=== PATIENT | female | born 1945 | race Caucasian/White ===

== ENCOUNTER 2016-04-11 06:41 | Emergency (ER) | payer MEDICARE ==
[2016-04-11] MEDS ORDERED: ASPIRIN 81 MG TABLET, CHEWABLE PO ONE (07:01)
[2016-04-11] MEDS ORDERED: ONDANSETRON HCL INJ/PF 4 MG/2 ML SDV IV ONE (07:23)
[2016-04-11] MEDS ORDERED: MORPHINE SULFATE 10 MG/ML INJ IV ONE (07:23)
--- NOTE | 2016-04-11 07:26 | ER Document Report ---
ED General - General Time seen by provider: 07:20 Mode of Arrival: Medic Information source: Patient, Emergency Med Personnel TRAVEL OUTSIDE OF THE U.S. IN LAST 30 DAYS: No - HPI Onset: Other - see HPI Quality of pain: Achy, Sharp Associated symptoms: Chest pain Exacerbated by: Movement, Coughing, Deep breathing <STEPHANI ROBLES - Last Filed: 04/11/16 08:28> <MOIRA BARCENAS - Last Filed: 04/11/16 08:43> - General Chief Complaint: Chest Wall Pain Stated Complaint: CHEST PAIN Notes: Patient is a 70-year-old female presenting to the emergency department with complaints of left-sided chest pain. Patient's chest pain was onset about one week ago and is getting worse. 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 Patient's pain is exacerbated and reproduced with movement, cough, and deep breathing. Patient's pain radiates down her arm and into her trapezius muscles. Patient also has an extensive cardiac history. Patient has CAD, heart attacks 2, COPD, and stents 4. Patient had her first stent placed in 2006 in [place]. In July of 2013, patient had an inferior wall stemi and was transferred from [facility] to [place] where she had 3 stents placed. Patient states that at her check up appointment , her collection development librarian said that her first stent may need to be repaired or replaced soon. Patient's PCP is Dr. Loza and her collection development librarian is Dr. Tripathi at Dr. Cedeno's office. Patient is allergic to penicillin. (STEPHANI ROBLES) - Related Data Allergies/Adverse Reactions: Penicillins Allergy (Verified 04/11/16 06:57) Hives Home Medications: Current Home Medications Clopidogrel Bisulfate [Clopidogrel] 75 mg PO DAILY 04/11/16 [History] Gabapentin [Gabapentin] 300 mg PO BID 04/11/16 [History] Levocetirizine Dihydrochloride [Xyzal 5 mg Tablet] 5 mg PO QPM 04/11/16 [History ] Metoprolol Tartrate 50 mg PO BID 04/11/16 [History] Montelukast Sodium 10 mg PO QPM 04/11/16 [History] Ranitidine HCl 150 mg PO BID 04/11/16 [History] Simvastatin [Simvastatin] 40 mg PO QPM 04/11/16 [History] Valsartan [Valsartan] 160 mg PO DAILY 04/11/16 [History] Past Medical History - General Information source: Patient, Emergency Med Personnel - Social History Smoking Status: Current Every Day Smoker Cigarette use (# per day): Yes - 1.5 ppd Chew tobacco use (# tins/day): No Frequency of alcohol use: None Drug Abuse: None Family History: CAD - Past Medical History Cardiac Medical History: Reports: Hx Coronary Artery Disease, Hx Heart Attack - x2, Hx Hypercholesterolemia, Hx Hypertension Pulmonary Medical History: Reports: Hx Asthma, Hx COPD Neurological Medical History: Reports: 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 GI Medical History: Reports: Hx Gastroesophageal Reflux Disease Psychiatric Medical History: Reports: Hx Depression Past Surgical History: Reports: Hx Appendectomy, Hx Cardiac Catheterization, Hx Cardiac Surgery - stents x4: 1 in 2006, 3 in July 2013 after inferior wall stemi , Hx Cholecystectomy, Hx Orthopedic Surgery, Hx Tubal Ligation, Other - vocal cord polyp removal - Immunizations Hx Diphtheria, Pertussis, Tetanus Vaccination: Yes <STEPHANI ROBLES - Last Filed: 04/11/16 08:28> Review of Systems - Review of Systems Constitutional: No symptoms reported EENT: No symptoms reported Cardiovascular: See HPI, Chest pain Respiratory: No symptoms reported Gastrointestinal: No symptoms reported Genitourinary: No symptoms reported Female Genitourinary: No symptoms reported Musculoskeletal: No symptoms reported Skin: No symptoms reported Hematologic/Lymphatic: No symptoms reported Neurological/Psychological: No symptoms reported -: Yes All other systems reviewed and negative <STEPHANI ROBLES - Last Filed: 04/11/16 08:28> Physical Exam - Vital signs Interpretation: Normal - General General appearance: Alert, Other - appears uncomfortable In distress: Mild - HEENT Head: Normocephalic, Atraumatic Eyes: Normal Pupils: PERRL Mucous membranes: Normal - Respiratory Respiratory status: No respiratory distress Chest status: Tender - upper left anterior chest wall tenderness Breath sounds: Normal Chest palpation: Normal - Cardiovascular Rhythm: Regular Heart sounds: Normal auscultation Murmur: No - Abdominal Inspection: Normal Distension: No distension Bowel sounds: Normal Tenderness: Nontender Organomegaly: No organomegaly - Back Back: Normal, Tender - left trapezius muscles exquisitely tender - Extremities General upper extremity: Normal inspection, Tender - tenderness to the left arm , radiating from the anterior chest, Normal ROM General lower extremity: Normal inspection, Normal ROM, Normal strength. No: Edema - Neurological Neuro grossly intact: Yes Cognition: Normal Orientation: AAOx4 [place] Coma Scale Eye Opening: Spontaneous [place] Coma Scale Verbal: Oriented [place] Coma Scale Motor: Obeys Commands Deanna Coma Scale Total: 15 Speech: Normal Sensory: Normal - Psychological Associated symptoms: Normal affect, Normal mood - Skin Skin Temperature: Warm Skin Moisture: Dry <STEPHANI ROBLES - Last Filed: 04/11/16 08:28> Course - Laboratory Result Diagrams: 04/11/16 06:50 04/11/16 06:50 <STEPHANI ROBLES - Last Filed: 04/11/16 08:28> - Laboratory Result Diagrams: 04/11/16 06:50 04/11/16 06:50 - Diagnostic Test Radiology reviewed: Image reviewed, Reports reviewed - Chest x-ray does not show any acute process. - EKG Interpretation by Ne EKG shows normal: Sinus rhythm, [place], Intervals, ST-T Waves. abnormal: QRS Complexes - Inferior Q's from old [place] Rate: Normal - 93 Rhythm: NSR <MOIRA BARCENAS - Last Filed: 04/11/16 08:43> - Vital Signs Vital signs: Temp Pulse Resp BP Pulse Ox 98.2 F 95 18 169/124 H 98 04/11/16 07:00 04/11/16 06:53 04/11/16 06:58 04/11/16 06:53 04/11/16 07:02 (STEPHANI ROBLES) (MOIRA BARCENAS) - Laboratory Laboratory results interpreted by me: 04/11/16 06:50 Est GFR (Non-Af Amer) 58 L (MOIRA BARCENAS) Discharge <STEPHANI ROBLES - Last Filed: 04/11/16 08:28> <MOIRA BARCENAS - Last Filed: 04/11/16 08:43> - Discharge Clinical Impression: Left-sided chest wall pain Trapezius muscle strain Qualifiers: Encounter type: initial encounter Laterality: left Qualified Code(s): S46.812A - Strain of other muscles, fascia and tendons at shoulder and upper arm level, left arm, initial encounter Strain of left pectoralis muscle Qualifiers: Encounter type: initial encounter Qualified Code(s): S29.011A - Strain of muscle and tendon of front wall of thorax, initial encounter Condition: Stable Disposition: HOME, SELF-CARE Additional Instructions: Chest Wall Pain: Your chest pain has been diagnosed as coming from the chest wall. This is often caused by straining the muscles or joints in the chest during physical activity, direct trauma, coughing, or vigorous vomiting. Persons with arthritis are especially prone to this type of pain, due to inflammation of the cartilage joints near the breast bone. Occasionally, no cause can be found. Rest from strenuous physical activity. This kind of chest pain is usually made worse by movement of the chest. Depending on the symptoms, we may prescribe medicine for pain, muscle relaxation, and antiinflammatory effects. If the pain is new, and seems to be due to muscle strain, cold packs can help. Otherwise, apply gentle warmth to the painful area for 15 minutes every hour or two. You should contact the doctor immediately if things change. Further evaluation is needed if you develop a fever or cough, if the nature of the pain changes, or if you become short of breath. Muscle Strain: You have strained a muscle -- torn the fibers within the muscle. This often occurs with strenuous exertion, or during an injury that suddenly stretches the muscle. The seriousness of a strain varies. Some strains heal within days, others cause problems for months. X-rays cannot show a muscle strain. X-rays are taken only if symptoms suggest that a fracture could be present. The usual treatment of a muscle strain is rest and ice packs. Sometimes, a sling, splint, or crutches may be necessary to rest the muscle. The muscle can be used again once pain subsides. Severe strains require a special exercise and stretching program to prevent permanent stiffness and disability. Your doctor will advise you if this will be necessary. Call the doctor immediately if pain or swelling becomes severe, or if numbness or discoloration develop. REST THE LEFT UPPER EXTREMITY. USE MOIST HEAT TO THE PAINFUL MUSCLES. TAKE THE PAIN MEDICATION AND MUSCLE RELAXERS NEEDED. FOLLOW UP WITH YOUR DOCTOR THIS WEEK FOR RECHECK. RETURN TO THE EMERGENCY ROOM IF ANY NEW OR WORSENING SYMPTOMS. Prescriptions: Cyclobenzaprine HCl [Flexeril 5 mg Tablet] 5 mg PO TID PRN #15 tablet PRN Reason: Oxycodone HCl/Acetaminophen [Percocet 5-325 mg Tablet] 1 - 2 tab PO ASDIR PRN # 15 tablet PRN Reason: Referrals: KAREN LOZA MD [Primary Care Provider] - Follow up in 3-5 days Scribe Attestation: 04/11/16 08:43 I personally performed the services described in the documentation, reviewed and edited the documentation which was dictated to the scribe in my presence, and it accurately records my words and actions. (MOIRA BARCENAS) Scribe Documentation <STEPHANI ROBLES - Last Filed: 04/11/16 08:28> <MOIRA BARCENAS - Last Filed: 04/11/16 08:43> - Scribe Written by Scribe:: MOIRA BARCENAS MD, SCRIBE 04/11/16830 Acting as scribe for: Dr. Barcenas (STEPHANI ROBLES) (MOIRA BARCENAS)
[2016-04-11 07:38] LABS: PROTHROMBIN TIME 12.1 SEC (11.4-15.4)
[2016-04-11 07:45] LABS: ABSOLUTE EOSINOPHILS # (AUTO) 0.3 10^3/uL (0.0-0.6); ABSOLUTE LYMPHOCYTES (AUTO) 1.3 10^3/uL (0.5-4.7); ABSOLUTE MONOCYTES (AUTO) 0.5 10^3/uL (0.1-1.4); ABSOLUTE NEUT (AUTO) 3.3 10^3/uL (1.7-8.2); ALANINE AMINOTRANSFERASE 21 U/L (9-52); ALBUMIN 3.7 g/dL (3.5-5.0); ALKALINE PHOSPHATASE 83 U/L (38-126); ANION GAP 13 (5-19); ASPARTATE AMINO TRANSFERASE 20 U/L (14-36); BASOPHILS % (AUTO) 0.6 % (0-2); BILIRUBIN,TOTAL 0.6 mg/dL (0.2-1.3); BLOOD UREA NITROGEN 14 mg/dL (7-20); CALCIUM 9.7 mg/dL (8.4-10.2); CARBON DIOXIDE 24 mmol/L (22-30); CHLORIDE 107 mmol/L (98-107); CREATINE KINASE 85 U/L (30-135); CREATININE RESULT 0.96 mg/dL (0.52-1.25); EOSINOPHILS % (AUTO) 4.8 % (0-6); GLUCOSE 101 mg/dL (75-110); HEMATOCRIT 41.9 % (36.0-47.0); HEMOGLOBIN 13.5 g/dL (12.0-15.5); HGB HCT DIFFERENCE -1.4; MEAN CORPUSCULAR HEMOGLOBIN 30.4 pg (27.0-33.4); MEAN CORPUSCULAR HGB CONC 32.3 g/dL (32.0-36.0); MEAN CORPUSCULAR VOLUME 94 fl (80-97); MONOCYTES % (AUTO) 8.8 % (3-13); POTASSIUM 4.7 mmol/L (3.6-5.0); RED BLOOD COUNT 4.45 10^6/uL (3.72-5.28); SEGMENTED NEUTROPHILS % (AUTO) 61.8 % (42-78); SODIUM 143.7 mmol/L (137-145); TOTAL PROTEIN 6.9 g/dL (6.3-8.2); WHITE BLOOD COUNT 5.3 10^3/uL (4.0-10.5)
[2016-04-11 07:57] LABS: CREATINE KINASE MB 1.25 ng/mL (<4.55)
[2016-04-11 07:58] LABS: TROPONIN I < 0.012 ng/mL
[2016-04-11 08:50] VITALS: BP 141/60
--- NOTE | 2016-04-11 10:17 | EKG REPORT ---
SEVERITY:- NORMAL ECG - SINUS RHYTHM : Confirmed by: Shea Wheeler MD 11-Apr-2016 10:16:14
== END 2016-04-11 08:50 | disposition home or self-care (01) ==
LOC: ER 06:41
DX: S29.012A Strain of muscle and tendon of back wall of thorax, initial encounter (principal); S29.011A Strain of muscle and tendon of front wall of thorax, initial encounter; X58.XXXA Exposure to other specified factors, initial encounter; R07.89 Other chest pain; I25.10 Atherosclerotic heart disease of native coronary artery without angina pectoris; I25.2 Old myocardial infarction; I10 Essential (primary) hypertension; J44.9 Chronic obstructive pulmonary disease, unspecified; J45.909 Unspecified asthma, uncomplicated; F17.210 Nicotine dependence, cigarettes, uncomplicated; Z98.61 Coronary angioplasty status; Z88.0 Allergy status to penicillin
CPT/HCPCS: 93005; 99285; 96374; 96375; 36415; 82553; 82550; 85025; 85610; 80053; 84484; 71010; 93010; J2270; J2405

== ENCOUNTER → 2016-08-03 | Outpatient (CLI) | payer MEDICARE ==
[2016-08-03 13:05] LABS: ABSOLUTE EOSINOPHILS # (AUTO) 0.3 10^3/uL (0.0-0.6); ABSOLUTE LYMPHOCYTES (AUTO) 1.3 10^3/uL (0.5-4.7); ABSOLUTE MONOCYTES (AUTO) 0.3 10^3/uL (0.1-1.4); ABSOLUTE NEUT (AUTO) 2.6 10^3/uL (1.7-8.2); EOSINOPHILS % (AUTO) 5.7 % (0-6); HEMATOCRIT 40.7 % (36.0-47.0); HGB HCT DIFFERENCE 1.3; LYMPHOCYTES % (AUTO) 28.2 % (13-45); MEAN CORPUSCULAR HEMOGLOBIN 32.2 pg (27.0-33.4); MEAN CORPUSCULAR HGB CONC 34.4 g/dL (32.0-36.0); MEAN CORPUSCULAR VOLUME 94 fl (80-97); MONOCYTES % (AUTO) 7.3 % (3-13); RED BLOOD COUNT 4.35 10^6/uL (3.72-5.28); RED CELL DISTRIBUTION WIDTH 13.6 % (11.5-14.0); SEGMENTED NEUTROPHILS % (AUTO) 57.8 % (42-78); WHITE BLOOD COUNT 4.5 10^3/uL (4.0-10.5)
[2016-08-03 13:30] LABS: ALANINE AMINOTRANSFERASE 20 U/L (9-52); ALBUMIN 4.3 g/dL (3.5-5.0); ALKALINE PHOSPHATASE 89 U/L (38-126); ANION GAP 8 (5-19); ASPARTATE AMINO TRANSFERASE 22 U/L (14-36); BILIRUBIN,DIRECT 0.4 mg/dL (0.0-0.4); BILIRUBIN,TOTAL 0.7 mg/dL (0.2-1.3); BLOOD UREA NITROGEN 12 mg/dL (7-20); CARBON DIOXIDE 28 mmol/L (22-30); CHLORIDE 104 mmol/L (98-107); CREATINE KINASE 89 U/L (30-135); CREATININE RESULT 0.93 mg/dL (0.52-1.25); GLUCOSE 119 mg/dL (75-110); POTASSIUM 5.4 mmol/L (3.6-5.0); SODIUM 139.7 mmol/L (137-145); TOTAL PROTEIN 7.6 g/dL (6.3-8.2)
[2016-08-03 13:35] LABS: CREATINE KINASE MB 1.09 ng/mL (<4.55)
[2016-08-03 13:45] LABS: TROPONIN I < 0.012 ng/mL
== END ==
LOC: OD 12:16
PROVIDERS: ATTEND Physician Assistant
DX: R07.9 Chest pain, unspecified (principal)
CPT/HCPCS: 36415; 71020; 80053; 82550; 82553; 84484; 85025

== ENCOUNTER → 2016-08-06 | Outpatient (CLI) | payer MEDICARE | LOC: OD 09:56 | PROVIDERS: ATTEND Physician Assistant | DX: E87.5 Hyperkalemia (principal) | CPT/HCPCS: 36415; 84132 ==

== ENCOUNTER → 2016-10-05 | Outpatient (CLI) | payer MEDICARE ==
[2016-10-05 12:23] LABS: ABSOLUTE BASOPHILS # (AUTO) 0.1 10^3/uL (0.0-0.2); ABSOLUTE EOSINOPHILS # (AUTO) 0.3 10^3/uL (0.0-0.6); ABSOLUTE LYMPHOCYTES (AUTO) 1.3 10^3/uL (0.5-4.7); ABSOLUTE MONOCYTES (AUTO) 0.5 10^3/uL (0.1-1.4); ABSOLUTE NEUT (AUTO) 3.9 10^3/uL (1.7-8.2); BASOPHILS % (AUTO) 1.1 % (0-2); EOSINOPHILS % (AUTO) 5.2 % (0-6); HEMATOCRIT 44.1 % (36.0-47.0); HEMOGLOBIN 14.9 g/dL (12.0-15.5); HGB HCT DIFFERENCE 0.6; LYMPHOCYTES % (AUTO) 21.3 % (13-45); MEAN CORPUSCULAR HEMOGLOBIN 30.5 pg (27.0-33.4); MEAN CORPUSCULAR HGB CONC 33.7 g/dL (32.0-36.0); MEAN CORPUSCULAR VOLUME 90 fl (80-97); MONOCYTES % (AUTO) 8.6 % (3-13); RED BLOOD COUNT 4.88 10^6/uL (3.72-5.28); RED CELL DISTRIBUTION WIDTH 14.7 % (11.5-14.0); SEGMENTED NEUTROPHILS % (AUTO) 63.8 % (42-78); WHITE BLOOD COUNT 6.1 10^3/uL (4.0-10.5)
[2016-10-05 12:46] LABS: ALANINE AMINOTRANSFERASE 30 U/L (9-52); ALBUMIN 4.5 g/dL (3.5-5.0); ALKALINE PHOSPHATASE 80 U/L (38-126); ANION GAP 8 (5-19); ASPARTATE AMINO TRANSFERASE 22 U/L (14-36); BILIRUBIN,DIRECT 0.3 mg/dL (0.0-0.4); BILIRUBIN,TOTAL 0.5 mg/dL (0.2-1.3); BLOOD UREA NITROGEN 12 mg/dL (7-20); CALCIUM 10.1 mg/dL (8.4-10.2); CARBON DIOXIDE 28 mmol/L (22-30); CHLORIDE 104 mmol/L (98-107); CREATINE KINASE 84 U/L (30-135); CREATININE RESULT 1.03 mg/dL (0.52-1.25); GLUCOSE 92 mg/dL (75-110); POTASSIUM 5.9 mmol/L (3.6-5.0); SODIUM 140.2 mmol/L (137-145); TOTAL PROTEIN 7.8 g/dL (6.3-8.2)
[2016-10-05 12:56] LABS: CREATINE KINASE MB 1.19 ng/mL (<4.55)
[2016-10-05 12:59] LABS: TROPONIN I < 0.012 ng/mL
[2016-10-05 13:05] LABS: ERYTHROCYTE SEDIMENTATION RATE 10 mm/hr (0-30)
[2016-10-06 12:51] LABS: CREATINE KINASE MB 1.25 ng/mL (<4.55)
[2016-10-06 12:52] LABS: TROPONIN I < 0.012 ng/mL
[2016-10-06 12:57] LABS: ALANINE AMINOTRANSFERASE 22 U/L (9-52); ALKALINE PHOSPHATASE 77 U/L (38-126); ANION GAP 9 (5-19); ASPARTATE AMINO TRANSFERASE 21 U/L (14-36); BILIRUBIN,DIRECT 0.4 mg/dL (0.0-0.4); BILIRUBIN,TOTAL 0.6 mg/dL (0.2-1.3); BLOOD UREA NITROGEN 15 mg/dL (7-20); CALCIUM 9.7 mg/dL (8.4-10.2); CARBON DIOXIDE 27 mmol/L (22-30); CHLORIDE 102 mmol/L (98-107); CREATINE KINASE 97 U/L (30-135); CREATININE RESULT 1.04 mg/dL (0.52-1.25); GLUCOSE 99 mg/dL (75-110); POTASSIUM 5.4 mmol/L (3.6-5.0); SODIUM 138.4 mmol/L (137-145); TOTAL PROTEIN 7.1 g/dL (6.3-8.2)
== END ==
LOC: OD 11:29
PROVIDERS: ATTEND Physician Assistant
DX: R07.9 Chest pain, unspecified (principal)
CPT/HCPCS: 36415; 80053; 82550; 82553; 84484; 85025; 85652; 86038; 86430

== ENCOUNTER 2016-10-06 16:18 | Emergency (ER) | payer MEDICARE ==
--- NOTE | 2016-10-06 18:42 | ER Document Report ---
ED Medical Screen (RME) - General Chief Complaint: Chest Pain Stated Complaint: CHEST PAIN Time Seen by Provider: 10/06/16 18:19 Mode of Arrival: Ambulatory Information source: Patient, [facility] Records TRAVEL OUTSIDE OF THE [place]. IN LAST 30 DAYS: No - HPI Onset: Other - 1 month Quality of pain: Dull Associated Symptoms: None Exacerbated by: Denies Relieved by: Denies Notes: 10/06/16 18:40 Patient is a 70-year-old female with known history of cardiac disease. She has had previous MIs and stent placements. She has not seen a film cleaner in approximately 18 months. She presents for one-month history of chest pain. Patient also states that she was seen by her primary care doctor yesterday and was told her potassium was elevated. Patient is taking an unknown oral agent for hyperkalemia. Patient denies any shortness of breath, nausea or vomiting, sweats. Patient states she wants to be "checked out" but does not want to be admitted to the hospital. 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 Renal/ Medical History: Denies: Hx Peritoneal Dialysis GI Medical History: Reports: Hx Gastroesophageal Reflux Disease Psychiatric Medical History: Reports: Hx Depression Past Surgical History: Reports: Hx Appendectomy, Hx Cardiac Catheterization, Hx Cardiac Surgery - stents x4: 1 in 2006, 3 in July 2013 after inferior wall stemi , Hx Cholecystectomy, Hx Orthopedic Surgery, Hx Tubal Ligation, Other - vocal cord polyp removal - Immunizations Hx Diphtheria, Pertussis, Tetanus Vaccination: Yes Physical Exam - Vital signs Vitals: Temp Pulse Resp BP Pulse Ox 98.4 F 79 18 167/92 H 97 10/06/16 16:28 10/06/16 16:28 10/06/16 16:28 10/06/16 16:28 10/06/16 16:28 Course - Re-evaluation Re-evalutation: 10/06/16 18:44 I have reviewed the chemistries done yesterday and today. Potassium was 5.9 yesterday and is 5.4 today. Patient does have extensive cardiac history and although her chest pain has been present for 1 month, she should be admitted for chest pain rule out. Patient will likely will sign out AMA however will continue to do the appropriate chest pain workup. - Vital Signs Vital signs: Temp Pulse Resp BP Pulse Ox 98.4 F 79 18 167/92 H 97 10/06/16 16:28 10/06/16 16:28 10/06/16 16:28 10/06/16 16:28 10/06/16 16:28 - EKG Interpretation by Hi EKG shows normal: Sinus rhythm Rate: Normal [place]/QRS: No: Right axis deviation, Left axis deviation When compared to previous EKG there are: No significant change
[2016-10-06 19:08] LABS: ABSOLUTE BASOPHILS # (AUTO) 0.1 10^3/uL (0.0-0.2); ABSOLUTE EOSINOPHILS # (AUTO) 0.2 10^3/uL (0.0-0.6); ABSOLUTE LYMPHOCYTES (AUTO) 1.2 10^3/uL (0.5-4.7); ABSOLUTE MONOCYTES (AUTO) 0.4 10^3/uL (0.1-1.4); ABSOLUTE NEUT (AUTO) 5.1 10^3/uL (1.7-8.2); BASOPHILS % (AUTO) 0.8 % (0-2); EOSINOPHILS % (AUTO) 2.3 % (0-6); HEMATOCRIT 42.5 % (36.0-47.0); HEMOGLOBIN 14.3 g/dL (12.0-15.5); HGB HCT DIFFERENCE 0.4; LYMPHOCYTES % (AUTO) 17.6 % (13-45); MEAN CORPUSCULAR HEMOGLOBIN 30.4 pg (27.0-33.4); MEAN CORPUSCULAR HGB CONC 33.6 g/dL (32.0-36.0); MEAN CORPUSCULAR VOLUME 91 fl (80-97); MONOCYTES % (AUTO) 5.9 % (3-13); RED BLOOD COUNT 4.68 10^6/uL (3.72-5.28); RED CELL DISTRIBUTION WIDTH 14.1 % (11.5-14.0); SEGMENTED NEUTROPHILS % (AUTO) 73.4 % (42-78); WHITE BLOOD COUNT 6.9 10^3/uL (4.0-10.5)
--- NOTE | 2016-10-06 19:13 | RADIOLOGY REPORT (SQ) ---
EXAM DESCRIPTION: CHEST SINGLE VIEW COMPLETED DATE/TIME: 10/06/2016 7:04 pm REASON FOR STUDY: cp COMPARISON: 04/11/2016 EXAM PARAMETERS: NUMBER OF VIEWS: One view. TECHNIQUE: Single frontal radiographic view of the chest acquired. RADIATION DOSE: NA LIMITATIONS: None. FINDINGS: LUNGS AND PLEURA: No opacities, masses or pneumothorax. No pleural effusion. MEDIASTINUM AND HILAR STRUCTURES: No masses. Contour normal. HEART AND VASCULAR STRUCTURES: Heart normal in size. Normal vasculature. BONES: No acute findings. HARDWARE: None in the chest. OTHER: No other significant finding. IMPRESSION: NO ACUTE RADIOGRAPHIC FINDING IN THE CHEST. TECHNICAL DOCUMENTATION: JOB ID: [id number]
[2016-10-06 19:29] LABS: ALANINE AMINOTRANSFERASE 26 U/L (9-52); ALBUMIN 4.5 g/dL (3.5-5.0); ALKALINE PHOSPHATASE 82 U/L (38-126); ANION GAP 11 (5-19); ASPARTATE AMINO TRANSFERASE 23 U/L (14-36); BILIRUBIN,DIRECT 0.4 mg/dL (0.0-0.4); BILIRUBIN,TOTAL 0.5 mg/dL (0.2-1.3); BLOOD UREA NITROGEN 14 mg/dL (7-20); CALCIUM 10.1 mg/dL (8.4-10.2); CARBON DIOXIDE 27 mmol/L (22-30); CHLORIDE 101 mmol/L (98-107); CREATININE RESULT 1.03 mg/dL (0.52-1.25); GLUCOSE 94 mg/dL (75-110); POTASSIUM 5.2 mmol/L (3.6-5.0); SODIUM 139.1 mmol/L (137-145); TOTAL PROTEIN 7.7 g/dL (6.3-8.2)
--- NOTE | 2016-10-06 19:51 | EKG REPORT ---
SEVERITY:- ABNORMAL ECG - SINUS RHYTHM PROBABLE INFERIOR INFARCT, AGE INDETERMINATE : Confirmed by: Isael Zamora MD 06-Oct-2016 19:50:57
[2016-10-06] MEDS ORDERED: ASPIRIN 81 MG TABLET, CHEWABLE PO ONE (20:40)
[2016-10-06] MEDS ORDERED: FAMOTIDINE 20 MG TABLET PO ONE (20:40)
--- NOTE | 2016-10-06 20:49 | ER Document Report ---
ED Cardiac - General Chief Complaint: Chest Pain Stated Complaint: CHEST PAIN Time Seen by Provider: 10/06/16 18:19 Mode of Arrival: Ambulatory Notes: Patient is a 70-year-old female who comes emergency department for chief complaint of chest pain, she has had chest pains over the past month, however she had an incident earlier where she felt nauseated and pressure in her chest at about 4 PM, this prompted her to come to the emergency department. She was seen by her primary care within the past 2 days, told she had elevated potassium , given a "liquid drink" which she took yesterday and today. She states she is told her potassium elevated occasionally because of her blood pressure medication. She has had a STEMI with stents placed in 2013, has had a total of 4 stents placed, she had a close follow-up with cardiology planned, supposed to get an appointment date tomorrow. Also has PMH of COPD and continues to smoke. Denies cough, fever, shortness of breath. TRAVEL OUTSIDE OF THE U.S. IN LAST 30 DAYS: No - Related Data Allergies/Adverse Reactions: Penicillins Allergy (Verified 10/06/16 16:29) Hives Past Medical History - General Information source: Patient, [facility] Records - Social History Smoking Status: Current Every Day Smoker Frequency of alcohol use: None Drug Abuse: None Lives with: Family Family History: CAD Patient has suicidal ideation: No Patient has homicidal ideation: No - Past Medical History Cardiac Medical History: Reports: Hx Coronary Artery Disease, Hx Heart Attack - x2, Hx Hypercholesterolemia, Hx Hypertension Pulmonary Medical History: Reports: Hx Asthma, Hx COPD Neurological Medical History: Reports: 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 Renal/ Medical History: Denies: Hx Peritoneal Dialysis GI Medical History: Reports: Hx Gastroesophageal Reflux Disease Psychiatric Medical History: Reports: Hx Depression Past Surgical History: Reports: Hx Appendectomy, Hx Cardiac Catheterization, Hx Cardiac Surgery - stents x4: 1 in 2006, 3 in July 2013 after inferior wall stemi , Hx Cholecystectomy, Hx Orthopedic Surgery, Hx Tubal Ligation, Other - vocal cord polyp removal - Immunizations Hx Diphtheria, Pertussis, Tetanus Vaccination: Yes Review of Systems - Review of Systems Constitutional: No symptoms reported EENT: No symptoms reported Cardiovascular: See HPI Respiratory: No symptoms reported Gastrointestinal: No symptoms reported Genitourinary: No symptoms reported Female Genitourinary: No symptoms reported Musculoskeletal: No symptoms reported Skin: No symptoms reported Hematologic/Lymphatic: No symptoms reported Neurological/Psychological: No symptoms reported Physical Exam - Vital signs Vitals: Temp Pulse Resp BP Pulse Ox 98.4 F 79 18 167/92 H 97 10/06/16 16:28 10/06/16 16:28 10/06/16 16:28 10/06/16 16:28 10/06/16 16:28 Interpretation: Normal - General General appearance: Appears well, Alert - HEENT Head: Normocephalic, Atraumatic Eyes: Normal Pupils: PERRL - Respiratory Respiratory status: No respiratory distress Chest status: Nontender Breath sounds: Normal Chest palpation: Normal - Cardiovascular Rhythm: Regular. No: Tachycardia Heart sounds: Normal auscultation, S1 appreciated, S2 appreciated Murmur: No - Abdominal Inspection: Normal Distension: No distension Bowel sounds: Normal Tenderness: Nontender Organomegaly: No organomegaly - Back Back: Normal, Nontender - Extremities General upper extremity: Normal inspection, Nontender, Normal color, Normal ROM , Normal temperature General lower extremity: Normal inspection, Nontender, Normal color, Normal ROM , Normal temperature, Normal weight bearing. No: Allison's sign - Neurological Neuro grossly intact: Yes Cognition: Normal Orientation: AAOx4 [place] Coma Scale Eye Opening: Spontaneous Deanna Coma Scale Verbal: Oriented Deanna Coma Scale Motor: Obeys Commands [place] Coma Scale Total: 15 Speech: Normal Motor strength normal: LUE, RUE, LLE, RLE Sensory: Normal - Psychological Associated symptoms: Normal affect, Normal mood, Other - patient expessive and talks loudly, but she makes good eye contact and listens. No: Aggressive, Agitated, Angry - Skin Skin Temperature: Warm Skin Moisture: Dry Skin Color: Normal Course - Re-evaluation Re-evalutation: EKG compared to prior, shows no acute abnormality. Chest x-ray unremarkable. CBC generally unremarkable, chemistry shows slightly elevated potassium but no acute findings. Initial troponin is negative, however patient's pain started reportedly at 4 PM. I discussed current workup with patient. Patient's symptoms and comorbidities are concerning for potential NSTEMI. I discussed this with patient, informed her that I needed additional troponins and she was not ruled out from a heart standpoint yet. She states she understands this, however she states she has a at home that she wants to care for, she states that at this point she refused to be admitted and she also refuses to stay any longer in the hospital. I informed her that she could have damaged her heart, she could have long- term effects from this if untreated, she could develop life-threatening arrhythmias or even from this. Patient states that she understands this, she states that she is accepting the risk but she will go home, she states that she will be setting up a cardiology follow-up, plans to speak to them tomorrow, states that she plans that if she develops any return or worsening symptoms she will return to emergency department. Patient does talk clearly, she has family members who state understanding of this, I reviewed this again with patient but she still states she wants to sign out AGAINST MEDICAL ADVICE. I do believe patient does have the capacity to make this decision and that she understands the risks. Patient was discharged AGAINST MEDICAL ADVICE - Vital Signs Vital signs: Temp Pulse Resp BP Pulse Ox 97.7 F 73 18 144/67 H 96 10/06/16 20:55 10/06/16 20:55 10/06/16 20:55 10/06/16 20:55 10/06/16 20:55 - Laboratory Result Diagrams: 10/06/16 18:50 10/06/16 18:50 Laboratory results interpreted by me: 10/06/16 10/06/16 18:50 18:50 RDW 14.1 H Potassium 5.2 H Est GFR (Non-Af Amer) 53 L Discharge - Discharge Clinical Impression: Chest pain Qualifiers: Chest pain type: unspecified Qualified Code(s): R07.9 - Chest pain, unspecified Condition: Stable Disposition: AGAINST MEDICAL ADVICE Additional Instructions: You have chosen to leave AGAINST MEDICAL ADVICE without completing your workup here tonight or being admitted to the hospital as per recommendation. I cannot guarantee that you have not had a heart attack, there is a chance that you could have damage to your heart, life-threatening arrhythmia, or other life- threatening abnormality. My recommendation is to keep your close follow-up with cardiology and to return at any time for additional evaluation and management.
[2016-10-06 21:09] VITALS: BP 144/67
== END 2016-10-06 20:55 | disposition left against medical advice (07) ==
LOC: ER 16:18
DX: R07.89 Other chest pain (principal); R11.0 Nausea; I25.10 Atherosclerotic heart disease of native coronary artery without angina pectoris; I25.2 Old myocardial infarction; I10 Essential (primary) hypertension; J44.9 Chronic obstructive pulmonary disease, unspecified; F17.200 Nicotine dependence, unspecified, uncomplicated; Z98.61 Coronary angioplasty status; Z79.899 Other long term (current) drug therapy; Z88.0 Allergy status to penicillin; Z82.49 Family history of ischemic heart disease and other diseases of the circulatory system; Z53.29 Procedure and treatment not carried out because of patient's decision for other reasons
CPT/HCPCS: 36415; 71010; 80053; 84484; 85025; 93005; 93010; 93880; 99285

== ENCOUNTER → 2016-10-06 | Outpatient (CLI) | payer MEDICARE ==
--- NOTE | 2016-10-06 10:51 | RADIOLOGY REPORT (SQ) ---
EXAM DESCRIPTION: CAROTID DOPPLER COMPLETED DATE/TIME: 10/06/2016 10:33 am REASON FOR STUDY: CAD I25.10 ATHSCL HEART DISEASE OF [place] CORONARY ARTERY W/O AN COMPARISON: None. TECHNIQUE: Grayscale ultrasound, Doppler velocity and spectra, and color Doppler images acquired of the extra-cranial carotid and vertebral arteries. Images stored on PACS. LIMITATIONS: None. FINDINGS: RIGHT CAROTID CCA Velocities: Within normal limits. ICA Velocities Peak systolic 1.16 m/s. End diastolic 0.39 m/s. Proximal ICA/CCA peak systolic ratio 1.2. Spectra normal. No significant plaque. LEFT CAROTID CCA Velocities: Within normal limits. ICA Velocities Peak systolic 1.05 m/s. End diastolic 0.28 m/s. Proximal ICA/CCA peak systolic ratio 1.1. Spectra normal. No significant plaque. VERTEBRAL ARTERIES: Antegrade flow. Normal waveforms. SUBCLAVIAN ARTERIES: No finding. OTHER: No other significant finding. IMPRESSION: NO HEMODYNAMICALLY SIGNIFICANT STENOSIS. COMMENT: Quality ID #[id number]: Velocity criteria are extrapolated from the diameter data as defined by t he Society of Radiologists in Ultrasound Consensus Conference. Radiology 2003: 229; 340-346. TECHNICAL DOCUMENTATION: JOB ID: [id number] [employer] All Rights Reserved
== END ==
LOC: SP 09:57
PROVIDERS: ATTEND Physician Assistant
DX: I25.10 Atherosclerotic heart disease of native coronary artery without angina pectoris (principal)
CPT/HCPCS: 93880

== ENCOUNTER → 2016-11-18 | Outpatient (CLI) | payer MEDICARE ==
--- NOTE | 2016-11-18 14:59 | RADIOLOGY REPORT (SQ) ---
EXAM DESCRIPTION: CT HEAD WITHOUT COMPLETED DATE/TIME: 11/18/2016 10:41 am REASON FOR STUDY: NUMBNESS R20.2 PARESTHESIA OF SKIN R20.3 HYPERESTHESIA COMPARISON: None. TECHNIQUE: Axial images acquired through the brain without intravenous contrast. Images reviewed wi th bone, brain and subdural windows. Images stored on PACS. All CT scanners at this facility use dose modulation, iterative reconstruction, and/or weight based d osing when appropriate to reduce radiation dose to as low as reasonably achievable (ALARA). [facility]: Dose Right [facility]: CareDose [facility]: Dose Right [facility]: Teradose 4D [facility]: MCE-5 Development RADIATION DOSE: Up-to-date CT equipment and radiation dose reduction techniques were employed. CTDIv ol: 49.0 mGy. DLP: 783 mGy-cm. mGy. LIMITATIONS: None. FINDINGS: VENTRICLES: Normal size and contour. CEREBRUM: No masses. No hemorrhage. No midline shift. Normal salas/white matter differentiation. N o evidence for acute infarction. CEREBELLUM: No masses. No hemorrhage. No alteration of density. No evidence for acute infarction. EXTRAAXIAL SPACES: No fluid collections. No masses. ORBITS AND GLOBE: No intra- or extraconal masses. Normal contour of globe without masses. CALVARIUM: No fracture. PARANASAL SINUSES: No fluid or mucosal thickening. SOFT TISSUES: No mass or hematoma. OTHER: No other significant finding. IMPRESSION: NORMAL BRAIN CT WITHOUT CONTRAST. TECHNICAL DOCUMENTATION: JOB ID: [id number] Quality ID # [id number]: Final reports with documentation of one or more dose reduction techniques (e.g., Au tomated exposure control, adjustment of the mA and/or kV according to patient size, use of iterative reconstruction technique) 2010 [employer]- All Rights Reserved
== END ==
LOC: RAD 10:19
PROVIDERS: ATTEND Physician Assistant
DX: R20.2 Paresthesia of skin (principal)
CPT/HCPCS: 70450

== ENCOUNTER 2017-08-31 13:50 | Emergency (ER) | payer MEDICARE ==
--- NOTE | 2017-08-31 15:15 | ER Document Report ---
ED Medical Screen (RME) - General Chief Complaint: Headache Stated Complaint: HEAD PAIN Time Seen by Provider: 08/31/17 15:06 Mode of Arrival: Ambulatory Information source: Patient Notes: This is a 71-year-old female with a history of coronary artery disease ( multiple stents), street of a right cerebral aneurysm who presents to the emergency room with right-sided burning sensation with numbness to the scalp. TRAVEL OUTSIDE OF THE [place] 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 Renal/ Medical History: Denies: Hx Peritoneal Dialysis GI Medical History: Reports: Hx Gastroesophageal Reflux Disease Psychiatric Medical History: Reports: Hx Depression Past Surgical History: Reports: Hx Appendectomy, Hx Cardiac Catheterization, Hx Cardiac Surgery - stents x4: 1 in 2006, 3 in July 2013 after inferior wall stemi , Hx Cholecystectomy, Hx Orthopedic Surgery, Hx Tubal Ligation, Other - vocal cord polyp removal - Immunizations Hx Diphtheria, Pertussis, Tetanus Vaccination: Yes Physical Exam - Vital signs Vitals: Temp Pulse Resp BP Pulse Ox 98.0 F 76 16 180/70 H 96 08/31/17 13:57 08/31/17 13:57 08/31/17 13:57 08/31/17 13:57 08/31/17 13:57 Course - Vital Signs Vital signs: Temp Pulse Resp BP Pulse Ox 98.0 F 76 16 180/70 H 96 08/31/17 13:57 08/31/17 13:57 08/31/17 13:57 08/31/17 13:57 08/31/17 13:57 Doctor's Discharge - Discharge Referrals: SILVESTRE ROSSI PA [Primary Care Provider] - Follow up as needed
[2017-08-31 15:45] LABS: INTERNATIONAL RATION (INR) 0.95; PROTHROMBIN TIME 13.2 SEC (11.4-15.4)
--- NOTE | 2017-08-31 15:51 | RADIOLOGY REPORT (SQ) ---
EXAM DESCRIPTION: CT HEAD WITHOUT COMPLETED DATE/TIME: 08/31/2017 3:43 pm REASON FOR STUDY: right sided headache, h/o aneurysm COMPARISON: 11/18/2016. TECHNIQUE: Axial images acquired through the brain without intravenous contrast. Images reviewed wi th bone, brain and subdural windows. Additional sagittal and coronal reconstructions were generated. Images stored on PACS. All CT scanners at this facility use dose modulation, iterative reconstruction, and/or weight based d osing when appropriate to reduce radiation dose to as low as reasonably achievable (ALARA). [facility]: Dose Right [facility]: CareDose [facility]: Dose Right [facility]: Teradose 4D [facility]: linkedü RADIATION DOSE: CT Rad equipment meets quality standard of care and radiation dose reduction techniq ues were employed. CTDIvol: 53.2 mGy. DLP: 964 mGy-cm. mGy. LIMITATIONS: None. FINDINGS: VENTRICLES: Normal size and contour. CEREBRUM: No masses. No hemorrhage. No midline shift. No evidence for acute infarction. Normal gra y/white matter differentiation. No areas of low density in the white matter. CEREBELLUM: No masses. No hemorrhage. No alteration of density. No evidence for acute infarction. EXTRAAXIAL SPACES: No fluid collections. No masses. ORBITS AND GLOBE: No intra- or extraconal masses. Normal contour of globe without masses. CALVARIUM: No fracture. PARANASAL SINUSES: No fluid or mucosal thickening. SOFT TISSUES: No mass or hematoma. OTHER: No other significant finding. IMPRESSION: NORMAL BRAIN CT WITHOUT CONTRAST. EVIDENCE OF ACUTE STROKE: NO. COMMENT: Quality ID # [id number]: Final reports with documentation of one or more dose reduction techniques (e.g., Automated exposure control, adjustment of the mA and/or kV according to patient size, use of iterative reconstruction technique) TECHNICAL DOCUMENTATION: JOB ID: [id number] [employer]- All Rights Reserved Reading location - IP/workstation name: [email or web address]
[2017-08-31 15:53] LABS: ABSOLUTE EOSINOPHILS # (AUTO) 0.2 10^3/uL (0.0-0.6); ABSOLUTE MONOCYTES (AUTO) 0.4 10^3/uL (0.1-1.4); ABSOLUTE NEUT (AUTO) 3.7 10^3/uL (1.7-8.2); BASOPHILS % (AUTO) 0.9 % (0-2); EOSINOPHILS % (AUTO) 2.8 % (0-6); HEMATOCRIT 41.4 % (36.0-47.0); HEMOGLOBIN 14.7 g/dL (12.0-15.5); LYMPHOCYTES % (AUTO) 18.7 % (13-45); MEAN CORPUSCULAR HEMOGLOBIN 31.6 pg (27.0-33.4); MEAN CORPUSCULAR HGB CONC 35.5 g/dL (32.0-36.0); MEAN CORPUSCULAR VOLUME 89 fl (80-97); MONOCYTES % (AUTO) 8.2 % (3-13); PLATELET COUNT 186 10^3/uL (150-450); RED BLOOD COUNT 4.65 10^6/uL (3.72-5.28); RED CELL DISTRIBUTION WIDTH 13.7 % (11.5-14.0); SEGMENTED NEUTROPHILS % (AUTO) 69.4 % (42-78); TOTAL CELLS COUNTED % (AUTO) 100 %; WHITE BLOOD COUNT 5.3 10^3/uL (4.0-10.5)
[2017-08-31 16:03] LABS: ALANINE AMINOTRANSFERASE 29 U/L (9-52); ALBUMIN 4.6 g/dL (3.5-5.0); ALKALINE PHOSPHATASE 79 U/L (38-126); ANION GAP 9 (5-19); ASPARTATE AMINO TRANSFERASE 30 U/L (14-36); BILIRUBIN,DIRECT 0.3 mg/dL (0.0-0.4); BILIRUBIN,TOTAL 0.3 mg/dL (0.2-1.3); BLOOD UREA NITROGEN 11 mg/dL (7-20); CALCIUM 10.1 mg/dL (8.4-10.2); CARBON DIOXIDE 25 mmol/L (22-30); CHLORIDE 96 mmol/L (98-107); GLUCOSE 105 mg/dL (75-110); POTASSIUM 5.9 mmol/L (3.6-5.0)
[2017-08-31 16:43] VITALS: BP 184/86
--- NOTE | 2017-08-31 16:43 | ER Document Report ---
ED Headache - General Chief Complaint: Headache Stated Complaint: HEAD PAIN Time Seen by Provider: 08/31/17 15:06 Mode of Arrival: Ambulatory Notes: Patient is complaining of worsening headaches. She says that she has had "burning" to the right face area and at times it "goes numb" for several months. She has seen Dr. Ott's nurse practitioner, Ms. Sharpe, yesterday for this same problem. Yesterday's visit was a follow-up for previous visits. Patient has been told that she has a 3.5 aneurysm in the right brain and that they are going to call and get her scheduled to see a neurosurgeon. Patient says in addition to her usual symptoms that she has had for months, that she is feeling pain in the back of her right head that is new. She spoke with the people and her doctor's office who recommended she come to the emergency department for evaluation. Otherwise, patient is nauseated but no other new or troubling symptoms. Has not had any facial drooping or asymmetry. No difficulty swallowing. No neurologic deficits at all. Patient has a history of epilepsy. Has not had any seizures recently. TRAVEL OUTSIDE OF THE [place] IN LAST 30 DAYS: No - Related Data Allergies/Adverse Reactions: Penicillins Allergy (Verified 08/31/17 13:51) Hives Past Medical History - General Information source: Patient - Social History Smoking Status: Current Every Day Smoker Chew tobacco use (# tins/day): No Frequency of alcohol use: None Drug Abuse: None Family History: Reviewed & Not Pertinent, CAD Patient has suicidal ideation: No Patient has homicidal ideation: No - Past Medical History Cardiac Medical History: Reports: Hx Coronary Artery Disease, Hx Heart Attack - x2, Hx Hypercholesterolemia, Hx Hypertension Pulmonary Medical History: Reports: Hx Asthma, Hx COPD Neurological Medical History: Reports: 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 EENT: Denies eye, ear, nose or mouth or throat pain or other symptoms. CARDIOVASCULAR: Denies chest pain. RESPIRATORY: Denies cough, chest congestion, or shortness of breath. GASTROINTESTINAL: Denies abdominal pain or nausea, vomiting, or diarrhea. GENITOURINARY: Denies difficulty or painful urinating, urinary frequency, blood in urine. MUSCULOSKELETAL: Denies back or neck pain. Denies joint pain or swelling. SKIN: Denies rash or skin lesions. NEUROLOGICAL: Denies LOC or altered mental status. See HPI regarding headache. Denies sensory loss or motor deficits. ALL OTHER SYSTEMS REVIEWED AND NEGATIVE. Physical Exam - Vital signs Vitals: Temp Pulse Resp BP Pulse Ox 98.0 F 76 16 180/70 H 96 08/31/17 13:57 08/31/17 13:57 08/31/17 13:57 08/31/17 13:57 08/31/17 13:57 Interpretation: Hypertensive - Notes Notes: PHYSICAL EXAMINATION: GENERAL: Well-appearing, in no acute distress. Anxious. Moderately hypertensive. HEAD: Atraumatic, normocephalic. EYES: Pupils equal round and reactive to light, extraocular movements intact. ENT: oropharynx clear without exudates. Moist mucous membranes. NECK: Normal range of motion, supple. LUNGS: Breath sounds clear and equal bilaterally. HEART: Regular rate and rhythm without murmurs. ABDOMEN: Soft, nontender. No guarding or rebound. No masses. BACK: No tenderness throughout entire back. EXTREMITIES: Normal range of motion without pain. NEUROLOGICAL: Normal speech, normal gait. Normal sensory, motor, and reflex exams. Awake, alert, and oriented x3. Cranial nerves normal. PSYCH: Normal mood, normal affect. SKIN: Warm, dry, no rashes. Course - Re-evaluation Re-evalutation: 08/31/17 19:37 At approximately 4:20 PM, I attempted to call patient's neurologist, Dr. Ott , but their office was closed. Patient's CT scan today is normal without any evidence of bleeding. Patient does not look sick. Does not have the appearance of someone who has ruptured an aneurysm. Patient's blood pressure is up and I had her take her metoprolol 50 mg pill that she is scheduled to take this evening. Repeat blood pressure at discharge showed patient's systolic blood pressure 150. - Vital Signs Vital signs: Temp Pulse Resp BP Pulse Ox 98.0 F 76 16 184/86 H 96 08/31/17 13:57 08/31/17 13:57 08/31/17 13:57 08/31/17 16:43 08/31/17 13:57 - Laboratory Result Diagrams: 08/31/17 15:19 08/31/17 15:19 Laboratory results interpreted by me: 08/31/17 15:19 Sodium 130.0 L Potassium 5.9 H Chloride 96 L Discharge - Discharge Clinical Impression: Headache, Cerebral aneurysm Condition: Stable Disposition: HOME, SELF-CARE Additional Instructions: HEADACHE: The physician does not feel that the headache you are experiencing has a serious underlying cause. Most headaches are due to emotional stress, with resultant muscle tension (tension headache). Occasionally, headaches are secondary to changes in the blood vessels of the scalp (vascular headache and migraine headache). Sometimes, a headache is the first symptom of another developing illness, such as a viral infection. You have no evidence of stroke, bleeding, meningitis, or other serious cause of your headache. The treatment of headaches varies with the severity and cause of the pain. Not all headaches need pain shots. In fact, there is evidence that using narcotics for headaches may make them worse in the long run. The physician will determine the therapy that's in your best interest. If you develop a fever, if the headache is different from any you've previously experienced, or if the headache progressively worsens, then call your physician at once or go to the emergency room. ANTINAUSEA MEDICATION: You have been given a medication to suppress nausea and vomiting. This type of medication can be given as a shot, pill, or suppository. It will usually last for many hours. Pills and shots usually last six to eight hours, suppositories last about 12 hours. For the typical illness, only one or two doses of the medication may be necessary. Mild lightheadedness may occur. This type of medicine can cause drowsiness. Do not drive or operate dangerous machinery while under its influence. Do not mix with alcohol. See your doctor at once if you have muscle spasms or tightness, or uncontrollable motions (particularly of the neck, mouth, or jaw). Persistent vomiting or severe lightheadedness should also be evaluated by the physician. ORAL NARCOTIC MEDICATION: You have been given a prescription for pain control. This medication is a narcotic. It's best taken with food, as nausea can result if taken on an empty stomach. Don't operate machinery or drive within six hours of taking this medication. Do not combine this medicine with alcohol, or with any medication which can cause sedation (such as cold tablets or sleeping pills) unless you get permission from the physician. Narcotics tend to cause constipation. If possible, drink plenty of fluids and eat a diet high in fiber and fruits. FOLLOW-UP CARE: If you have been referred to a physician for follow-up care, call the physician s office for an appointment as you were instructed or within the next two days. If you experience worsening or a significant change in your symptoms, notify the physician immediately or return to the Emergency Department at any time for re-evaluation. Call your neurologist office tomorrow morning to determine what the scheduled follow-up and care is going to be for your aneurysm. Prescriptions: Oxycodone HCl/Acetaminophen [Percocet 5-325 mg Tablet] 1 tab PO Q4HP PRN #10 tablet PRN Reason: Promethazine HCl [Phenergan 25 mg Tablet] 1 tab PO Q6HP PRN #15 tablet PRN Reason: Referrals: SILVESTRE ROSSI PA [PHYSICIAN [employer] LOAD EXPEDITER] - Follow up as needed IRAIDA OTT MD [NO LOCAL MD] - Follow up tomorrow
== END 2017-08-31 16:43 | disposition home or self-care (01) ==
LOC: ER 13:50
DX: I67.1 Cerebral aneurysm, nonruptured (principal); R51 Headache; R20.0 Anesthesia of skin; F17.200 Nicotine dependence, unspecified, uncomplicated; I25.10 Atherosclerotic heart disease of native coronary artery without angina pectoris; E78.00 Pure hypercholesterolemia, unspecified; I10 Essential (primary) hypertension; Z88.0 Allergy status to penicillin; I25.2 Old myocardial infarction; Z90.49 Acquired absence of other specified parts of digestive tract
CPT/HCPCS: 36415; 70450; 80053; 85025; 85610; 99284

== ENCOUNTER → 2018-11-07 | Outpatient (CLI) | payer MEDICARE ==
--- NOTE | 2018-11-07 11:51 | RADIOLOGY REPORT (SQ) ---
EXAM DESCRIPTION: LUMBAR SPINE COMPLETE COMPLETED DATE/TIME: 11/07/2018 11:00 am REASON FOR STUDY: LOW BACK PAIN M54.5 LOW BACK PAIN COMPARISON: 01/27/2016 NUMBER OF VIEWS: Five views including obliques. TECHNIQUE: AP, lateral, oblique, and sacral radiographic images acquired of the lumbar spine. LIMITATIONS: None. FINDINGS: MINERALIZATION: Normal. SEGMENTATION: Normal. No transitional anatomy. ALIGNMENT: Normal. VERTEBRAE: Maintained height. No fracture or worrisome bone lesion. DISCS: There is disc space narrowing at L5-S1 with vacuum phenomena. Small anterior osteophytes thro ughout the lumbar spine. POSTERIOR ELEMENTS: Pedicles and facets are intact. No pars defect or posterior arch defects. HARDWARE: None in the spine. PARASPINAL SOFT TISSUES: Normal. PELVIS: Intact as visualized. No fractures or worrisome bone lesions. SI joints intact. OTHER: No other significant finding. IMPRESSION: Mild degenerative changes most marked at L5-S1. No acute findings. TECHNICAL DOCUMENTATION: JOB ID: [id number] [employer]- All Rights Reserved Reading location - IP/workstation name: [email or web address]
== END ==
LOC: OD 10:47
PROVIDERS: ATTEND Physician Assistant
DX: M51.37 Other intervertebral disc degeneration, lumbosacral region (principal); M54.5 Low back pain
CPT/HCPCS: 72110

== ENCOUNTER → 2019-08-16 | Outpatient (CLI) | payer MEDICARE ==
--- NOTE | 2019-08-16 11:22 | RADIOLOGY REPORT (SQ) ---
EXAM DESCRIPTION: CT HEAD WITHOUT IMAGES COMPLETED DATE/TIME: 08/16/2019 10:30 am REASON FOR STUDY: (R20.2)PARESTHESIA OF SKIN R20.2 PARESTHESIA OF SKIN COMPARISON: 08/31/2017. TECHNIQUE: Axial images acquired through the brain without intravenous contrast. Images reviewed wi th bone, brain and subdural windows. Additional sagittal and coronal reconstructions were generated. Images stored on PACS. All CT scanners at this facility use dose modulation, iterative reconstruction, and/or weight based d osing when appropriate to reduce radiation dose to as low as reasonably achievable (ALARA). [facility]: Dose Right [facility]: CareDose [facility]: Dose Right [facility]: Teradose 4D [facility]: [employer] RADIATION DOSE: CT Rad equipment meets quality standard of care and radiation dose reduction techniq ues were employed. CTDIvol: 48.6 mGy. DLP: 855 mGy-cm. mGy. LIMITATIONS: None. FINDINGS: VENTRICLES: Normal size and contour. CEREBRUM: No masses. No hemorrhage. No midline shift. No evidence for acute infarction. Normal gra y/white matter differentiation. No areas of low density in the white matter. CEREBELLUM: No masses. No hemorrhage. No alteration of density. No evidence for acute infarction. EXTRAAXIAL SPACES: No fluid collections. No masses. ORBITS AND GLOBE: No intra- or extraconal masses. Normal contour of globe without masses. CALVARIUM: No fracture. PARANASAL SINUSES: No fluid or mucosal thickening. SOFT TISSUES: No mass or hematoma. OTHER: No other significant finding. IMPRESSION: NORMAL BRAIN CT WITHOUT CONTRAST. EVIDENCE OF ACUTE STROKE: NO. COMMENT: Quality ID # 436: Final reports with documentation of one or more dose reduction techniques (e.g., Automated exposure control, adjustment of the mA and/or kV according to patient size, use of iterative reconstruction technique) TECHNICAL DOCUMENTATION: JOB ID: [id number] 2010 [employer]- All Rights Reserved Reading location - IP/workstation name: [email or web address]
== END ==
LOC: RAD 10:04
PROVIDERS: ATTEND Physician Assistant
DX: R20.2 Paresthesia of skin (principal)
CPT/HCPCS: 70450

== ENCOUNTER → 2020-01-18 | Outpatient (CLI) | payer MEDICARE ==
--- NOTE | 2020-01-18 11:03 | RADIOLOGY REPORT (SQ) ---
EXAM DESCRIPTION: CTA HEAD IMAGES COMPLETED DATE/TIME: 01/18/2020 10:37 am REASON FOR STUDY: R42 DIZZINESS AND GIDDINESS R42 DIZZINESS AND GIDDINESS COMPARISON: None. TECHNIQUE: Axial images acquired through the brain without and with intravenous contrast. Images re viewed with bone, brain and subdural windows. Additional sagittal and coronal reconstructions were g enerated. Images stored on PACS. CT angio pauma of [place] was performed. Thin section postcontrast CT images were reviewed with maxim um intensity projected images of the pauma of [place] in multiple orientations. All CT scanners at this facility use dose modulation, iterative reconstruction, and/or weight based d osing when appropriate to reduce radiation dose to as low as reasonably achievable (ALARA). [facility]: Dose Right [facility]: CareDose [facility]: Dose Right [facility]: Teradose 4D [facility]: [employer]IN[employer] - [employer] CONTRAST TYPE AND DOSE: contrast/concentration: Isovue 350.00 mmol/ml; Total Contrast Delivered: 74. 0 ml; Total Saline Delivered: 55.0 ml RENAL FUNCTION: Creatinine 1.0 RADIATION DOSE: CT Rad equipment meets quality standard of care and radiation dose reduction techniq ues were employed. CTDIvol: NaN - NaN mGy. DLP: 0 mGy-cm.. LIMITATIONS: None. FINDINGS: VENTRICLES: Normal size and contour. CEREBRUM: No masses. No hemorrhage. No midline shift. No evidence for acute infarction. Normal gra y/white matter differentiation. No areas of low density in the white matter. CEREBELLUM: No masses. No hemorrhage. No alteration of density. No evidence for acute infarction. No enhancing lesions. EXTRA-AXIAL SPACES: No fluid collections. No enhancing lesions. ORBITS AND GLOBE: No intra- or extraconal masses. Normal contour of globe without masses. CALVARIUM: No fracture. PARANASAL SINUSES: No fluid or mucosal thickening. SOFT TISSUES: No mass or hematoma. OTHER: No other significant finding. CTA COW: [place] OF [place]: The anterior, middle, posterior cerebral arteries are all patent. No evidence of a neurysm or focal stenosis. POSTERIOR CIRCULATION: The distal vertebral arteries are patent as is the basilar artery. No aneurysm . OTHER: No other significant finding. IMPRESSION: NORMAL BRAIN CT WITH AND WITHOUT CONTRAST. NO CTA EVIDENCE OF STENOSIS OR ANEURYSM OF THE [place] OF [place]. EVIDENCE OF ACUTE STROKE: NO. TECHNICAL DOCUMENTATION: JOB ID: [id number] Quality ID # [id number]: Final reports with documentation of one or more dose reduction techniques (e.g., Au tomated exposure control, adjustment of the mA and/or kV according to patient size, use of iterative reconstruction technique) 2010 [employer]- All Rights Reserved Reading location - IP/workstation name: [email or web address]
== END ==
LOC: RAD 09:41
PROVIDERS: ATTEND Physician Assistant
DX: R42 Dizziness and giddiness (principal); I67.1 Cerebral aneurysm, nonruptured
CPT/HCPCS: 70496; 82565

== ENCOUNTER 2020-02-25 10:42 | Emergency (ER) | payer MEDICARE ==
--- NOTE | 2020-02-25 11:21 | RADIOLOGY REPORT (SQ) ---
EXAM DESCRIPTION: CHEST SINGLE VIEW IMAGES COMPLETED DATE/TIME: 02/25/2020 11:13 am REASON FOR STUDY: difficulty breathing COMPARISON: 10/06/2016 EXAM PARAMETERS: NUMBER OF VIEWS: One view. TECHNIQUE: Single frontal radiographic view of the chest acquired. RADIATION DOSE: NA LIMITATIONS: None. FINDINGS: LUNGS AND PLEURA: Hyperexpansion with small pleural effusions. There is bilateral interst itial airspace disease. MEDIASTINUM AND HILAR STRUCTURES: No masses. Contour normal. HEART AND VASCULAR STRUCTURES: Mild cardiac enlargement with central vascular congestion. BONES: No acute findings. HARDWARE: None in the chest. OTHER: No other significant finding. IMPRESSION: Findings are consistent with vascular congestion. Mild cardiac enlargement with central venous congestion and interstitial edema. Small effusions left greater than right. TECHNICAL DOCUMENTATION: JOB ID: [id number] 2010 [employer]- All Rights Reserved Reading location - IP/workstation name: [email or web address]
--- NOTE | 2020-02-25 14:09 | EKG REPORT ---
SEVERITY:- BORDERLINE ECG - SINUS BRADYCARDIA PROBABLE LEFT ATRIAL ABNORMALITY : Confirmed by: Mike Dubose MD 25-Feb-2020 14:09:22
[2020-02-25] MEDS ORDERED: IPRATROPIUM/ALBUTEROL 0.5-2.5 MG/3 ML AMPUL NEB ONE (14:50)
[2020-02-25] MEDS ORDERED: FUROSEMIDE INJ/PF 20 MG/2 ML SDV IV ONE (14:50)
--- NOTE | 2020-02-25 14:50 | ER Document Report ---
ED Respiratory Problem - General Chief Complaint: Shortness Of Breath Stated Complaint: DIFFICULTY BREATHING Time Seen by Provider: 02/25/20 13:33 Primary Care Provider: BIRDIE ROPER PA [Primary Care Provider] - Follow up as needed Notes: This 74-year-old woman presents to the emergency department with a complaint of shortness of breath and dyspnea on exertion which is worsened over the past few days. She denies chest pain today, however she has had intermittent chest pressure and discomfort. She has a history of COPD, is not on home O2 and has been using her nebulizer infrequently. She notes increased shortness of breath when lying flat. TRAVEL OUTSIDE OF THE [place] 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 HENT: Negative for sore throat. Eyes: Negative for visual changes. Cardiovascular: Negative for chest pain. Respiratory: + Shortness of breath Gastrointestinal: Negative for abdominal pain, vomiting or diarrhea. Genitourinary: Negative for dysuria. Musculoskeletal: Negative for back pain. Skin: Negative for rash. Neurological: Negative for headaches, weakness or numbness. 10 point ROS negative except as marked above and in HPI. Physical Exam - Vital signs Vitals: Temp Pulse Resp BP Pulse Ox 98.4 F 68 16 149/44 H 96 02/25/20 10:48 02/25/20 10:48 02/25/20 10:48 02/25/20 10:48 02/25/20 10:48 - Notes Notes: PHYSICAL EXAMINATION: Physical Exam: General: Ill-appearing in 74-year-old woman in moderate respiratory distress HEENT: NC/AT, pupils equal round and reactive to light, MM moist,nares clear, oropharynx clear, airway patent Neck: supple, no adenopathy, no masses. Good range of motion Lungs: Scattered wheezes and crackles with accessory muscles of respiration use and increased work to breathe CVS: Regular rate and rhythm no murmur gallop or rub Abdomen: Soft, active, nontender, no masses, no hepatosplenomegaly Ext: No edema, clubbing or cyanosis. Neuro: Alert and responsive, moving all 4 extremities on command, cranial nerves intact, no focal findings Skin: Intact no open lesions, no rash Course - Re-evaluation Re-evalutation: 02/25/20 19:31 I have discussed patient to the hospital for further diuresis and nebulizer treatments, the patient states that she cannot stay she has to go home she is taking care of a family member in a wheelchair and does not want to be admitted to the hospital. She has a nebulizer machine at home as well as prescription for Lasix. She will follow-up with your primary care doctor for further evaluation and treatment. - Vital Signs Vital signs: Temp Pulse Resp BP Pulse Ox 98.4 F 68 16 110/78 95 02/25/20 10:48 02/25/20 10:48 02/25/20 17:01 02/25/20 17:01 02/25/20 17:01 - Laboratory Result Diagrams: 02/25/20 15:04 02/25/20 15:04 Laboratory results interpreted by me: 02/25/20 02/25/20 02/25/20 15:04 15:04 15:04 RBC 3.48 L Hgb 9.6 L Hct 29.2 L RDW 18.3 H Lymph % (Auto) 12.5 L Sodium 132.7 L Carbon Dioxide 31 H Anion Gap 4 L NT-Pro-B Natriuret Pep 1740 H - Diagnostic Test Radiology reviewed: Image reviewed, Reports reviewed Radiology results interpreted by me: 02/25/20 19:18 Chest X-Ray 02/25/20 00:00 IMPRESSION: Findings are consistent with vascular congestion. Mild cardiac enlargement with central venous congestion and interstitial edema. Small effusions left greater than right. - EKG Interpretation by Me Rate: Bradycardia - EKG interpreted by Dr. Agustin: Sinus bradycardia, rate 48, WA interval 172 ms, QT interval 440 ms, normal axis, no acute ST or T wave abnormalities, no ischemic findings, compared to EKG dated 10/11/2018, there are no acute interval changes.. Interpretation abnormal EKG Discharge - Discharge Clinical Impression: COPD with exacerbation, Mild congestive heart failure Condition: Good Disposition: HOME, SELF-CARE Additional Instructions: You are [facility] with an exacerbation of COPD and mild congestive heart failure. You are being sent home with a prescription for medications to help with the congestive heart failure and please continue your home nebulizer treatments. Please follow-up with your primary care doctor for reevaluation and assessment of your oxygen status. If your symptoms are worsening or if you have other concerns you may return to the emergency department for further evaluation and treatment HOME CARE INSTRUCTIONS & INFORMATION: Thank you for choosing us for your medical needs. We hope you're satisfied with the care you received. After you leave, you must properly care for your problem and, at the same time, observe its progress. Any condition can change. Some illnesses can change rapidly over hours or days. If your condition worsens, return to the Emergency Department or see your physician promptly. ABOUT YOUR X-RAYS AND EKG'S: If you had an EKG or X-rays taken, they have been read by the Emergency Physician. The X-rays and EKG's will also be read by a Radiologist or Hand Stonecutter within 24 hours. If discrepancies are noted, you will be notified by telephone. Please be certain the ED has a correct telephone number & address where you can be reached. Also, realize that some fractures or abnormalities do not show up on initial X-rays. If your symptoms continue, see your physician. ABOUT YOUR LABORATORY TEST: If you had laboratory tests, the results have been reviewed by the Emergency Physician. Some test results (for example cultures) may not be available for several days. You will be contacted if any test result shows you need additional treatment. Please be certain the ED has a correct telephone number and address where you can be reached. ABOUT YOUR MEDICATIONS: You will receive instructions on how to take your medicine on the prescription label you receive. Additional information may be provided by the Pharmacy. If you have questions afterwards, call the ED for clarification or further instructions. Some prescribed medications may cause drowsiness. Do not perform tasks such as driving a car or operating machinery without consulting your Pharmacist. If you feel you need a refill of pain medication, your condition will need re-evaluation. Please do not call for a refill of any medication. ABOUT YOUR SIGNATURE: Signature of this document acknowledges to followin. Understanding that you received emergency treatment and that you may be released before al medical problems are known or treated. Please be certain the ED has a correct phone number & address where you can be reached. 2. Acknowledgement that you will arrange for follow-up care as recommended. 3. Authorization for the Emergency Physician to provide information to your follow-up Physician in order to maximize your care. AT ANY TIME, IF YOUR SYMPTOMS CHANGE SIGNIFICANTLY OR WORSEN OR YOU DEVELOP NEW SYMPTOMS, RETURN TO THE EMERGENCY DEPARTMENT IMMEDIATELY FOR RE-EVALUATION. OUR GOAL IS TO PROVIDE EXCELLENT MEDICAL CARE! WE HOPE THAT WE HAVE MET YOUR EXPECTATIONS DURING YOUR EMERGENCY DEPARTMENT VISIT AND THAT YOU FEEL YOU HAVE RECEIVED EXCELLENT CARE! Prescriptions: Furosemide [Lasix 20 mg Tablet] 20 mg PO QAM #10 tablet Referrals: BIRDIE ROPER PA [Primary Care Provider] - Follow up as needed
[2020-02-25] MEDS ORDERED: METHYLPREDNISOLONE INJ 125 MG/2 ML SDV IV ONE (14:51)
[2020-02-25 15:39] LABS: ABSOLUTE EOSINOPHILS # (AUTO) 0.2 10^3/uL (0.0-0.6); ABSOLUTE LYMPHOCYTES (AUTO) 0.6 10^3/uL (0.5-4.7); ABSOLUTE MONOCYTES (AUTO) 0.4 10^3/uL (0.1-1.4); ABSOLUTE NEUT (AUTO) 3.7 10^3/uL (1.7-8.2); BASOPHILS % (AUTO) 0.6 % (0-2); EOSINOPHILS % (AUTO) 4.5 % (0-6); HEMATOCRIT 29.2 % (36.0-47.0); HEMOGLOBIN 9.6 g/dL (12.0-15.5); LYMPHOCYTES % (AUTO) 12.5 % (13-45); MEAN CORPUSCULAR HEMOGLOBIN 27.7 pg (27.0-33.4); MEAN CORPUSCULAR VOLUME 84 fl (80-97); PLATELET COUNT 188 10^3/uL (150-450); RED BLOOD COUNT 3.48 10^6/uL (3.72-5.28); RED CELL DISTRIBUTION WIDTH 18.3 % (11.5-14.0); SEGMENTED NEUTROPHILS % (AUTO) 74.4 % (42-78); TOTAL CELLS COUNTED % (AUTO) 100 %
[2020-02-25 15:58] LABS: ALKALINE PHOSPHATASE 95 U/L (38-126); ASPARTATE AMINO TRANSFERASE 29 U/L (14-36); BILIRUBIN,DIRECT 0.2 mg/dL (0.0-0.4); BILIRUBIN,TOTAL 0.4 mg/dL (0.2-1.3); BLOOD UREA NITROGEN 9 mg/dL (7-20); CALCIUM 9.3 mg/dL (8.4-10.2); CARBON DIOXIDE 31 mmol/L (22-30); CHLORIDE 98 mmol/L (98-107); GLUCOSE 101 mg/dL (75-110); TOTAL PROTEIN 6.9 g/dL (6.3-8.2)
[2020-02-25 16:09] LABS: ANION GAP 4 (5-19)
[2020-02-25 16:10] LABS: CREATINE KINASE MB 1.14 ng/mL (<4.55)
[2020-02-25 16:14] LABS: TROPONIN I < 0.012 ng/mL
[2020-02-25 18:10] LABS: APPEARANCE,URINE CLEAR; BILIRUBIN,URINE NEGATIVE (NEGATIVE); COLOR,URINE STRAW; GLUCOSE, URINE NEGATIVE (NEGATIVE); KETONES,URINE NEGATIVE (NEGATIVE); PROTEIN,URINE NEGATIVE (NEGATIVE); URINE SPECIFIC GRAVITY 1.005; UROBILINOGEN,URINE NEGATIVE mg/dL (<2.0)
[2020-02-25 19:42] VITALS: BP 168/72
== END 2020-02-25 19:50 | disposition home or self-care (01) ==
LOC: ER 10:42
DX: J44.1 Chronic obstructive pulmonary disease with (acute) exacerbation (principal); I11.0 Hypertensive heart disease with heart failure; I50.9 Heart failure, unspecified; R06.02 Shortness of breath; R06.00 Dyspnea, unspecified; R07.9 Chest pain, unspecified; F17.200 Nicotine dependence, unspecified, uncomplicated; Z99.81 Dependence on supplemental oxygen; I25.10 Atherosclerotic heart disease of native coronary artery without angina pectoris; I25.2 Old myocardial infarction
CPT/HCPCS: 93005; 94640; 99285; 96374; 96375; 36415; 82553; 82550; 85025; 80053; 81001; 84484; 83880; 71045; 93010; J1940; J2930

== ENCOUNTER 2020-04-24 00:04 | Emergency (ER) | payer MEDICARE ==
[2020-04-24] MEDS ORDERED: RINGERS SOLUTION,LACTATED 1,000 ML IV ONE (00:35)
--- NOTE | 2020-04-24 00:37 | ER Document Report ---
ED Medical Screen (RME) - General Chief Complaint: Chest Pain Stated Complaint: CHEST PAIN,LEG PAIN Time Seen by Provider: 04/24/20 00:28 Primary Care Provider: BIRDIE ROPER PA [Primary Care Provider] - Follow up as needed Notes: Patient presents to emergency department stating that she has had 8 falls in the past week. Patient denies any falls today. Patient complains of lower extremity swelling and bilateral foot pain from her falls. Patient states she is had chest pain for the past week. Patient did test positive for Covid on 04/08/2019. Patient states that she has had decreased appetite and had poor intake. Patient states that she has had an increase in seizures with a seizure today. Patient does have a history of seizures, AL, hypertension, dyslipidemia, asthma and COPD. Patient anxious and tearful in triage. I have greeted and performed a rapid initial assessment of this patient. A comprehensive ED assessment and evaluation of the patient, analysis of test results and completion of the medical decision making process will be conducted by additional ED providers. TRAVEL OUTSIDE OF THE [place] 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 Renal/ Medical History: Denies: Hx Peritoneal Dialysis GI Medical History: Reports: Hx Gastroesophageal Reflux Disease Psychiatric Medical History: Reports: Hx Depression Past Surgical History: Reports: Hx Appendectomy, Hx Cardiac Catheterization, Hx Cardiac Surgery - stents x4: 1 in 2006, 3 in July 2013 after inferior wall stemi, Hx Cholecystectomy, Hx Orthopedic Surgery, Hx Tubal Ligation, Other - vocal cord polyp removal - Immunizations Hx Diphtheria, Pertussis, Tetanus Vaccination: Yes Physical Exam - Vital signs Vitals: Temp Pulse Resp BP Pulse Ox 97.9 F 110 H 24 H 104/54 L 99 04/24/20 00:10 04/24/20 00:10 04/24/20 00:10 04/24/20 00:10 04/24/20 00:10 - Respiratory Respiratory status: Tachypnea. No: Labored Breath sounds: Nonproductive cough, Wheezing - Cardiovascular Rhythm: Tachycardia Heart sounds: S1 appreciated, S2 appreciated Course - Vital Signs Vital signs: Temp Pulse Resp BP Pulse Ox 97.9 F 110 H 24 H 104/54 L 99 04/24/20 00:10 04/24/20 00:10 04/24/20 00:10 04/24/20 00:10 04/24/20 00:10 Doctor's Discharge - Discharge Referrals: BIRDIE ROPER PA [Primary Care Provider] - Follow up as needed
--- NOTE | 2020-04-24 02:11 | ER Document Report ---
ED General - General Chief Complaint: Chest Pain Stated Complaint: CHEST PAIN,LEG PAIN Time Seen by Provider: 04/24/20 00:28 Primary Care Provider: BIRDIE ROPER PA [Primary Care Provider] - Follow up as needed Information source: Patient Notes: 04/24/20 00:30 - ED [facility] [id number] : 1945 Patient Age: [age] Y/O FEMALE, COVID+, CPD/ASTHMA, PRESENTS C/O CHEST PAIN THAT STARTED LAST WEEK AND BRUISING TO LOWER EXTREMITIES. PT REPORTS THAT SHE FELL 8 TIMES WITHIN LAST 2 WEEKS. Initialized on 04/24/20 00:30 - END OF NOTE ED Medical Screen (Gemma guardado) - General Chief Complaint: Chest Pain Stated Complaint: CHEST PAIN,LEG PAIN Time Seen by Provider: 04/24/20 00:28 Primary Care Provider: BIRDIE ROPER PA [Primary Care Provider] - Follow up as needed Notes: Patient presents to emergency department stating that she has had 8 falls in the past week. Patient denies any falls today. Patient complains of lower extremity swelling and bilateral foot pain from her falls. Patient states she is had chest pain for the past week. Patient did test positive for Covid on 04/08/2019. Patient states that she has had decreased appetite and had poor intake. Patient states that she has had an increase in seizures with a seizure today. Patient does have a history of seizures, [place], hypertension, dyslipidemia, asthma and COPD. Patient anxious and tearful in triage. MY NOTES 74-year-old female arrives with chief complaint of having Covid on 08 April. She has factitious dermatitis of her wrists and hands and says this is from the "Cobra virus". 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 She advises that since she has had the "Cobra virus" she " has had increase in her [place] seizures "and "while she was washing the dishes 1 week ago she fell down the floor and injured her right foot " with severe ecchymosis and pain on ambulation. She reports when he tries to walk she has stumbling. She denies any alcohol abuse but smokes more than 1/2 packs of cigarettes a day since she was a teenager. She reports she has not had any seizures for the last 5 years until the "Cobra virus" attacked her. Patient reports she tried to stop smoking 1 month ago but then her continue to smoke and then this prompted her to smoke as well. Her chest x-ray reveals no obvious Covid lesions or pneumonia. Patient reports "she fell 1 week ago but was too afraid to come to the hospital because she thought she might be admitted because of her virus and then might from this." Patient reports she takes vitamin D vitamin D and shark cartilage TRAVEL OUTSIDE OF THE [place] 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 Renal/ Medical History: Denies: Hx Peritoneal Dialysis GI Medical History: Reports: Hx Gastroesophageal Reflux Disease Psychiatric Medical History: Reports: Hx Depression Past Surgical History: Reports: Hx Appendectomy, Hx Cardiac Catheterization, Hx Cardiac Surgery - stents x4: 1 in 2006, 3 in July 2013 after inferior wall stemi, Hx Cholecystectomy, Hx Orthopedic Surgery, Hx Tubal Ligation, Other - vocal cord polyp removal - Immunizations Hx Diphtheria, Pertussis, Tetanus Vaccination: Yes Physical Exam - Vital signs Vitals: Temp Pulse Resp BP Pulse Ox 97.9 F 110 H 24 H 104/54 L 99 04/24/20 00:10 04/24/20 00:10 04/24/20 00:10 04/24/20 00:10 04/24/20 00:10 Interpretation: Tachycardic, Tachypneic - General General appearance: Alert, Anxious - HEENT Head: Normocephalic, Atraumatic Eyes: Normal Pupils: PERRL Sinus: Normal Nasal: Normal Mouth/Lips: Normal Mucous membranes: Normal Pharynx: Normal Neck: Normal - Respiratory Respiratory status: No respiratory distress Chest status: Nontender Breath sounds: Normal Chest palpation: Normal - Cardiovascular Rhythm: Regular Heart sounds: Normal auscultation Murmur: No - Abdominal Inspection: Normal Distension: No distension Bowel sounds: Normal Tenderness: Nontender Organomegaly: No organomegaly - Rectal Hemorrhoids: Other - Deferred - Genitourinary Bimanuel exam: Other - Deferred - Back Back: Normal, Nontender - Extremities General upper extremity: Normal inspection, Nontender, Normal color, Normal ROM, Normal temperature General lower extremity: Tender, Edema - Pain to right foot with ecchymosis diffusely from ankle and dorsum and plantar foot., Normal temperature, Normal weight bearing. No: Allison's sign - Neurological Neuro grossly intact: Yes Cognition: Normal Orientation: AAOx4 Deanna Coma Scale Eye Opening: Spontaneous Deanna Coma Scale Verbal: Oriented [place] Coma Scale Motor: Obeys Commands [place] Coma Scale Total: 15 Speech: Normal Motor strength normal: LUE, RUE, LLE, RLE Sensory: Normal - Psychological Associated symptoms: Anxious, Tearful - Skin Skin Temperature: Warm Skin Moisture: Dry Skin Color: Normal Course - Vital Signs Vital signs: Temp Pulse Resp BP Pulse Ox 97.9 F 110 H 17 120/92 H 97 04/24/20 00:10 04/24/20 00:10 04/24/20 03:01 04/24/20 03:01 04/24/20 02:09 - Laboratory Results Result Diagrams: 04/24/20 02:02 04/24/20 02:02 Laboratory Results Interpreted: 04/24/20 04/24/20 02:02 02:02 WBC 11.8 H Hgb 11.8 L Hct 35.6 L MCH 26.7 L RDW 23.1 H Seg Neuts % (Manual) 90 H Lymphocytes % (Manual) 7 L Abs Neuts (Manual) 10.6 H Sodium 131.5 L Chloride 94 L BUN 66 H Creatinine 3.38 H Est GFR ( Amer) 16 L Est GFR (MDRD) Non-Af 13 L Glucose 117 H Magnesium 2.5 H AST 52 H Critical Laboratory Results Reviewed: Yes Attending or Supervising Physician who Reviewed Labs: ANDRA STEWART JR - Radiology Results Critical Radiology Results Reviewed: Yes Attending or Supervising Physician who Reviewed Radiology: ANDRA STEWART JR Discharge - Discharge Clinical Impression: Dehydration, Renal insufficiency, Fall Talus fracture Qualifiers: Encounter type: initial encounter Fracture type: closed Talus location: unspecified portion of talus Fracture alignment: displaced Laterality: right Qualified Code(s): S92.101A - Unspecified fracture of right talus, initial encounter for closed fracture Condition: Stable Disposition: HOME, SELF-CARE Additional Instructions: Try to avoid using your injured foot and R ICE that is rest ice compression elevation and follow-up with Dr. Jose Eduardo Gonzalez orthopedics because of your talus fracture to your foot. Return to ER as needed. Prescriptions: Etodolac [Lodine] 400 mg PO DAILY PRN #7 tablet PRN Reason: Pain Scale Of 1 Referrals: BIRDIE ROPER PA [Primary Care Provider] - Follow up as needed JOSE EDUARDO GONZALEZ DO [ACTIVE STAFF] - Follow up as needed
[2020-04-24 02:15] LABS: VENOUS BLOOD BASE EXCESS -2.8 mmol/L; VENOUS BLOOD HCO3 23.3 mmol/L (20-32); VENOUS BLOOD PCO2 45.7 mmHg (35-63); VENOUS BLOOD PH 7.33 (7.30-7.42)
[2020-04-24 02:16] LABS: HEMATOCRIT 35.6 % (36.0-47.0); HEMOGLOBIN 11.8 g/dL (12.0-15.5); MEAN CORPUSCULAR HEMOGLOBIN 26.7 pg (27.0-33.4); MEAN CORPUSCULAR HGB CONC 33.3 g/dL (32.0-36.0); MEAN CORPUSCULAR VOLUME 80 fl (80-97); RED BLOOD COUNT 4.44 10^6/uL (3.72-5.28); RED CELL DISTRIBUTION WIDTH 23.1 % (11.5-14.0); WHITE BLOOD COUNT 11.8 10^3/uL (4.0-10.5)
[2020-04-24 02:21] LABS: INTERNATIONAL RATION (INR) 1.14; PROTHROMBIN TIME 14.8 SEC (11.4-15.4)
[2020-04-24 02:34] LABS: ALBUMIN 3.8 g/dL (3.5-5.0); ALKALINE PHOSPHATASE 80 U/L (38-126); ANION GAP 16 (5-19); ASPARTATE AMINO TRANSFERASE 52 U/L (14-36); BILIRUBIN,DIRECT 0.3 mg/dL (0.0-0.4); BILIRUBIN,TOTAL 0.4 mg/dL (0.2-1.3); BLOOD UREA NITROGEN 66 mg/dL (7-20); CALCIUM 9.7 mg/dL (8.4-10.2); CARBON DIOXIDE 22 mmol/L (22-30); CHLORIDE 94 mmol/L (98-107); GLUCOSE 117 mg/dL (75-110); POTASSIUM 4.2 mmol/L (3.6-5.0); TOTAL PROTEIN 7.1 g/dL (6.3-8.2)
[2020-04-24 02:42] LABS: ABSOLUTE LYMPHOCYTES# (MANUAL) 0.8 10^3/uL (0.5-4.7); ABSOLUTE MONOCYTES # (MANUAL) 0.4 10^3/uL (0.1-1.4); BASOPHILS % (MANUAL) 0 % (0-2); EOSINOPHILS % (MANUAL) 0 % (0-6); LYMPHOCYTES % (MANUAL) 7 % (13-45); MONOCYTES % (MANUAL) 3 % (3-13); SEGMENTED NEUTROPHILS % (MAN) 90 % (42-78); TOTAL CELLS COUNTED 100
[2020-04-24 02:44] LABS: ANISOCYTOSIS 3+; HYPOCHROMASIA SLIGHT; PLATELET CLUMPS PRESENT; PLATELET COMMENT ADEQUATE; PLATELET COUNT 303 10^3/uL (150-450); POIKILOCYTOSIS 1+; TARGET CELLS 1+
--- NOTE | 2020-04-24 02:52 | RADIOLOGY REPORT (SQ) ---
CLINICAL INDICATION: fall, bilat foot pain. . TECHNIQUE: 3 view(s) were obtained of the right foot. 3 view(s) were obtained of the left foot. COMPARISON: None. FINDINGS: Right: Avulsion fracture arising from the dorsum of the talus anteriorly. This is age-indeterminate. Alignment appears anatomic. Joint spaces are within normal limits for age. Soft tissue swelling. Age-indeterminate posttraumatic change tarsometatarsal junction. Left: Avulsion fracture arising from the dorsum of the talus, which appears old. Alignment appears anatomic. Joint spaces are within normal limits for age. Surrounding soft tissues are unremarkable. IMPRESSION: Right: Avulsion fracture dorsum of the talus, age indeterminant. Nondisplaced post traumatic changes of the Lisfranc joint. There is associated soft tissue swelling. This may be acute Left: No acute bony injury is seen
--- NOTE | 2020-04-24 02:56 | RADIOLOGY REPORT (SQ) ---
CHEST X-RAY 1 VIEW on 04/24/2020 at 2:11 AM CLINICAL INDICATION: Chest pain, cough, history of COVID 19 COMPARISON: 02/25/2020 FINDINGS: Vascular calcification is noted in the aorta. The lungs are clear. Cardiac, hilar and mediastinal contours are within normal limits. Pulmonary vascularity is within normal limits. IMPRESSION: No pulmonary opacities identified. Please note that chest radiographs have low sensitivity for subtle groundglass opacities.
[2020-04-24 04:44] VITALS: BP 144/76
--- NOTE | 2020-04-24 15:05 | EKG REPORT ---
SEVERITY:- ABNORMAL ECG - SINUS TACHYCARDIA PROBABLE LEFT ATRIAL ABNORMALITY : Confirmed by: Mike Dubose MD 24-Apr-2020 15:05:19
== END 2020-04-24 04:44 | disposition home or self-care (01) ==
LOC: ER 00:04
DX: S92.101A Unspecified fracture of right talus, initial encounter for closed fracture (principal); E86.0 Dehydration; N28.9 Disorder of kidney and ureter, unspecified; R07.9 Chest pain, unspecified; R63.0 Anorexia; R60.0 Localized edema; R06.82 Tachypnea, not elsewhere classified; R00.0 Tachycardia, unspecified; W19.XXXA Unspecified fall, initial encounter; Z91.81 History of falling; I25.2 Old myocardial infarction; I10 Essential (primary) hypertension; E78.5 Hyperlipidemia, unspecified; J44.9 Chronic obstructive pulmonary disease, unspecified; F41.9 Anxiety disorder, unspecified; L98.1 Factitial dermatitis; F17.210 Nicotine dependence, cigarettes, uncomplicated; Z88.0 Allergy status to penicillin; I25.10 Atherosclerotic heart disease of native coronary artery without angina pectoris; Z86.16 Personal history of COVID-19
CPT/HCPCS: 93005; 99285; 96360; 36415; 87040; 83605; 83735; 85025; 85610; 80053; 82803; 71045; 73630; 93010; J7120